=== PATIENT | male | born 1965 | race American Indian/Alaskan Native ===

== ENCOUNTER 2020-01-20 08:40 | Emergency (ER) | payer SELFPAY ==
--- NOTE | 2020-01-20 10:28 | Emergency Department Report ---
<YASIR BARRY - Last Filed: 01/20/20 15:35> ED ENT HPI - General Chief complaint: Sore Throat Stated complaint: SWOLLEN TONSILS Time Seen by Provider: 01/20/20 09:53 - Related Data Allergies Allergy/AdvReac Type Severity Reaction Status Date / Time No Known Allergies Allergy Unverified 01/20/20 08:41 ED Dental HPI - General Chief complaint: Sore Throat Stated complaint: SWOLLEN TONSILS Time Seen by Provider: 01/20/20 09:53 - Related Data Allergies Allergy/AdvReac Type Severity Reaction Status Date / Time No Known Allergies Allergy Unverified 01/20/20 08:41 ED Course - Reevaluation(s) Reevaluation #1: Patient was found to have an early peritonsillar abscess. I reviewed the CT. There is a lucency which is very small which does not have a fluid level nor gas. Patient has mild uvular deviation. His airway is patent. He has no trismus and he is not drooling. Procedure note I explained the procedure to the patient. 4% topical was used to anesthetize the soft palate. Using a 10 cc syringe with a 19-gauge inch and a half needle I tap the respective area. There was no purulence. The procedure was well- tolerated. I discussed the patient's care findings with Dr. Castanon. I did call [place] who stated they were not available for such transfers. I did inform Dr. Castanon of the above. In my opinion he is not at risk for any incipient or rapidly progressive airway compromise. He seems appropriate for treatment with IV antibiotics which we are continuing. 01/20/20 15:36 ED Medical Decision Making - Lab Data Result diagrams: 01/20/20 10:34 01/20/20 10:34 ED Disposition Clinical Impression: Peritonsillar abscess Disposition: DC/[place]-70 ANOTHER TYPE [facility] Condition: Stable Referrals: PRIMARY CARE, [Primary Care Provider] - 3-5 Days <MACKENZIE SONI - Last Filed: 01/20/20 18:41> ED ENT HPI - General Source: patient Mode of arrival: Ambulatory Limitations: No Limitations - History of Present Illness Initial comments: 54-year-old male presents to the ER today complaining of a 3-day history of sore throat. Patient states that his sore throat is worse on the right side. Patient reports difficulty swallowing due to pain. He states that he has not been able to eat or drink for the past 3 days. Patient states that he has occasionally has had the symptoms in the past. He states that typically he would gargle with some warm salt water and his symptoms will get better but he does recall being diagnosed with strep throat once in the past. He reports asso ciated fevers, highest 100.5 for which she has been taking Tylenol. He denies any runny nose, nasal congestion, cough or drooling. He denies any ill contacts, known COVID contacts or recent travel. MD complaint: sore throat, difficulty swallowing ED Dental HPI - General Source: patient Mode of arrival: Ambulatory Limitations: No Limitations ED Review of Systems ROS: Stated complaint: SWOLLEN TONSILS Other details as noted in HPI Comment: All other systems reviewed and negative Constitutional: fever. denies: chills ENT: ear pain, throat pain Respiratory: denies: cough, shortness of breath, SOB with exertion, SOB at rest, stridor, wheezing Cardiovascular: denies: chest pain Gastrointestinal: denies: nausea, vomiting, diarrhea Genitourinary: denies: urgency, dysuria, frequency, hematuria Neurological: denies: headache, weakness, numbness, paresthesias ED Past Medical Hx - Past Medical History Previous Medical History?: No - Surgical History Additional Surgical History: tonsils - Social History Smoking Status: Current Every Day Smoker Substance Use Type: None ED Physical Exam - General Limitations: No Limitations General appearance: alert, in no apparent distress - Head Head exam: Present: atraumatic, normocephalic, normal inspection - Eye Eye exam: Present: normal appearance, PERRL, EOMI Pupils: Present: normal accommodation - ENT ENT exam: Present: mucous membranes moist - Expanded ENT Exam Expanded Mouth exam: Present: muffled voice. Absent: drooling, trismus Throat exam: Positive: tonsillar erythema, tonsillomegaly, other (Mild uvular deviation to left and mild swelling and erythema to uvula). Negative: tonsillar exudate - Neck Neck exam: Present: normal inspection, full ROM, lymphadenopathy (Right anterior neck). Absent: meningismus - Respiratory Respiratory exam: Present: normal lung sounds bilaterally. Absent: respiratory distress - Cardiovascular Cardiovascular Exam: Present: tachycardia - Neurological Exam Neurological exam: Present: alert, oriented X3, CN II-XII intact - Psychiatric Psychiatric exam: Present: normal affect, normal mood - Skin Skin exam: Present: intact ED Course Vital Signs 01/20/20 01/20/20 01/20/20 08:41 10:49 14:31 Temperature 100.5 F H 99.8 F H Pulse Rate 129 H 108 H Respiratory 20 20 20 Rate Blood Pressure 151/92 Blood Pressure 148/88 [Left] O2 Sat by Pulse 98 Oximetry ED Medical Decision Making - Lab Data Result diagrams: 01/20/20 10:34 01/20/20 10:34 - Radiology Data Radiology results: report reviewed Findings [facility] [address] [place] [address] Cat Scan Report Signed Patient: KIRT LEON MR#: [id number] 26 : 1965 Acct:[id number] Age/Sex: 54 / M ADM Date: 01/20/20 Loc: ED Attending Dr: Ordering Physician: MACKENZIE SONI Date of Service: 01/20/20 Procedure(s): CT neck w con Accession Number(s): [id number] cc: MACKENZIE SONI NECK CT 01/20/2020 HISTORY: SORE THROAT/RIGHT TONSILLAR SWELLING/ABSCESS 100 ML OMNI 300 FINDINGS: Contrast enhanced CT images of the soft tissues of the neck were obtained. Images are evaluated in the axial, coronal, and sagittal planes. There is prominent tonsillar lymphoid hyperplasia, much more pronounced on the right than on the left. There also appears to be some edema associated with the soft palate and uvula. Within the lymphoid hyperplasia on the right, there is a focal hypodense collection measuring approximately 1.8 cm, consistent with peritonsillar abscess. The right submandibular gland is slightly larger than the left, which may be evidence of is associated inflammation or normal anatomic variation. Reactive-type adenopathy is present, more pronounced on the right. The largest reactive-type lymph nodes measures approximately 3.0 cm, in the right jugulodigastric region. IMPRESSION: Tonsillar lymphoid hyperplasia, right greater than left, with 1.8 cm hypodense central component, consistent with peritonsillar abscess. All CT scans at this location are performed using dose reduction to ALARA by means of automated exposure control. Signer Name: Freddy Cabrera MD Signed: 01/20/2020 12:41 PM Workstation Name: [id number] Transcribed By: AO Dictated By: Freddy Cabrera MD Electronically Authenticated By: Freddy Cabrera MD Signed Date/Time: 01/20/20 1241 DD/ 1233 TD/TT: - Medical Decision Making 1315 -- Pt presented to ED c/o sore throat, difficulty swallow and inability to eat or drink x 3 days. He has muffled voice on exam with tonsillar swelling, more so on right and mild uvular deviation to left but no trismus and no drooling noted. Patent airway. Labs reviewed, cbc show leukocytosis of 19, CT soft tissue next show 1.8cm right peritonsillar abscess and rapid strep neg. Patient given IV decadron and toradol and reports some improvement with meds. He is currently in no distress. Clindamycin, and blood cultures ordered. Case Discussed with Dr Barry, who reviewed results, he is going to attempt I&D of abscess. 1345 -- See Dr Barry's note for I&D details. Patient to be admitted to hospitalist service. He is currently stable. 171 -- After much discussion, between Dr Castanon and Dr Barry, Dr Castanon does not feel comfortable admitting patient due the fact that no ENT available. Dr Barry has gone for the day. Ching charge nurse recommend [place] [facility] [place]. 182 -- Spoke to [facility] [place]. Waiting for call back from either [facility] [place] 183 --- Spoke to [place] Julio MOON at [facility] he has agree to consult on patient. Recommend admitting to hospitalist and he will consult. Spoke to Dr Fisher (hospitalist) at [facility] he [place]. Critical care attestation.: If time is entered above; I have spent that time in minutes in the direct care o f this critically ill patient, excluding procedure time. ED Disposition Is pt being admited?: No Does the pt Need Aspirin: No
[2020-01-20] MEDS: KETOROLAC 30 MG/1 ML INJ IV ONE (10:49)
[2020-01-20] MEDS: dexAMETHasone 20 MG/5 ML VIAL IV ONE (10:52)
[2020-01-20] MEDS: SODIUM CHLORIDE 0.9% 1000 ML 1,000 ML IV ONE ×2 (10:52→15:12)
[2020-01-20 11:09] LABS: Basophils # (Auto) 0.1 K/mm3 (0.0-0.1); Basophils % (Auto) 0.4 % (0.0-1.8); Hematocrit 47.2 % (35.5-45.6); Hemoglobin 15.7 gm/dl (11.8-15.2); Lymphocytes # (Auto) 1.3 K/mm3 (1.2-5.4); Lymphocytes % (Auto) 6.5 % (13.4-35.0); Mean Corpuscular HGB Conc 33 % (32-34); Mean Corpuscular Volume 94 fl (84-94); Monocytes # (Auto) 1.8 K/mm3 (0.0-0.8); Monocytes % (Auto) 9.5 % (0.0-7.3); Platelet Count 464 K/mm3 (140-440); Red Blood Count 5.04 M/mm3 (3.65-5.03); Red Cell Distribution Width 15.3 % (13.2-15.2)
[2020-01-20 11:26] LABS: Alanine Aminotransferase 26 units/L (7-56); Albumin 3.8 g/dL (3.9-5); BUN/Creatinine Ratio 9; Blood Urea Nitrogen 8 mg/dL (9-20); Calcium 9.6 mg/dL (8.4-10.2); Hemolysis Index 16
--- NOTE | 2020-01-20 12:45 | Cat Scan Report ---
NECK CT 01/20/2020 HISTORY: SORE THROAT/RIGHT TONSILLAR SWELLING/ABSCESS 100 ML OMNI 300 FINDINGS: Contrast enhanced CT images of the soft tissues of the neck were obtained. Images are evalu ated in the axial, coronal, and sagittal planes. There is prominent tonsillar lymphoid hyperplasia, much more pronounced on the right than on the left . There also appears to be some edema associated with the soft palate and uvula. Within the lymphoid hyperplasia on the right, there is a focal hypodense collection measuring approxi mately 1.8 cm, consistent with peritonsillar abscess. The right submandibular gland is slightly larger than the left, which may be evidence of is associate d inflammation or normal anatomic variation. Reactive-type adenopathy is present, more pronounced on the right. The largest reactive-type lymph no josé luis measures approximately 3.0 cm, in the right jugulodigastric region. IMPRESSION: Tonsillar lymphoid hyperplasia, right greater than left, with 1.8 cm hypodense central co mponent, consistent with peritonsillar abscess. All CT scans at this location are performed using dose reduction to ALARA by means of automated expos ure control. Signer Name: Freddy Cabrera MD Signed: 01/20/2020 12:41 PM Workstation Name: [id number]
[2020-01-20] MEDS: LIDOCAINE (4%) 40 MG/ML TOPICAL SOLN 50 ML BOTTLE TP ONE (13:15)
[2020-01-20] MEDS: LIDOCAINE VISCOUS 2% 15 ML ORAL LIQD MM NR (13:18)
[2020-01-20] MEDS: cefTRIAXone/NS 2 GM/100 ML 2 GM/100 ML BAG IV ONE (15:29)
[2020-01-20 18:47] VITALS: BP 146/90
== END 2020-01-20 21:42 | disposition other institution (70) ==
LOC: ED 08:40
DX: J36 Peritonsillar abscess (principal); F17.200 Nicotine dependence, unspecified, uncomplicated; Z79.899 Other long term (current) drug therapy
CPT/HCPCS: 36415; 70491; 80053; 85025; 87040; 87116; 87430; 96365; 96367; 96375; 99285; J0696; J1100; J1885; J7030; Q9967